=== PATIENT | female | born 1960 | race Asian ===

== ENCOUNTER → 2016-04-11 | Outpatient (CLI) | payer BC, OTHER ==
--- NOTE | 2016-04-11 09:15 | MA ---
Screening Digital Mammogram Clinical Indications: Routine screening. Technique: Standard cephalocaudal and mediolateral oblique projections were obtained. This examinat ion was processed by the [employer] computer aided detection system. Comparison: April 2013, January 2010 and December 2008. Breast density: D; The breast tissue is extremely dense. This may lower the sensitivity of mammograph y. Findings: CAD was reviewed. No suspicious findings are identified. Impression: Negative mammogram. BI-RADS 1. Recommendation: Routine screening is recommended in one year, as long as physical examination is trevon ign in this patient with extremely dense breast parenchyma. Considering the patient's dense breast pa [email or web address], she might consider using whole breast screening ultrasound as a complement to annual screen ing mammography. [facility] will send a result letter to the patient. Negative mammography should not preclude additional workup of a clinically suspicious finding. The patient's information is entered into a reminder system with a target due date for her next mammo gram.
== END ==
LOC: CIMAGING 08:08
PROVIDERS: ATTEND Family Medicine
DX: Z12.31 Encounter for screening mammogram for malignant neoplasm of breast (principal)
CPT/HCPCS: G0202

== ENCOUNTER → 2017-04-14 | Outpatient (CLI) | payer OTHER | LOC: FIMAGING 12:22 | PROVIDERS: ATTEND Family Medicine | DX: Z12.31 Encounter for screening mammogram for malignant neoplasm of breast (principal) ==